=== PATIENT | male | born 2005 | race Two or more races ===

== ENCOUNTER 2025-06-20 12:02 | Emergency (ER) | payer MEDICAID, SELFPAY ==
[2025-06-20 13:21] VITALS: BP 143/86; PULSE 111; RESP 18; TEMP 36.9; O2SAT 96; BMI 42.0
--- NOTE | 2025-06-20 13:37 | XR_ITS ---
Examination: Wrist, left 3 views Technique: Wrist AP, oblique, lateral 3 views Date and time of exam: June 20, 2025, 1347 hours INDICATIONS: Patient fell today with injury of the wrist, wrist pain. FINDINGS: No fracture or dislocation No foreign body IMPRESSION: No fracture or dislocation
--- NOTE | 2025-06-20 13:37 | XR_ITS ---
EXAMINATION: Right knee 2 views TECHNIQUE: AP lateral right knee 2 views Date and time: June, 1353 hours INDICATIONS: Patient fell off a skateboard with laceration to the right knee today. FINDINGS: Large laceration in distribution of the patellar tendon No fracture Small knee effusion IMPRESSION: Consider MRI knee without without contrast follow-up to exclude damage to the patellar tendon
--- NOTE | 2025-06-20 13:38 | EDNOTE_ITS ---
Lower Extremity Injury RME/HPI General Chief Complaint: Extremity Injury, Lower Stated Complaint: R KNEE INJURY FELL OFF SKATEBOARD Time Seen by Provider: 06/20/25 12:21 Arrival date/time: 06/20/25 12:02 19-year-old male patient was brought in by family for evaluation regarding right anterior knee laceration. Patient sustained a fall while doing skateboard, patient sustained 10 cm gaping laceration to the anterior knee, severity moderate. Patient also complained of left wrist tenderness, no swelling or de formity noted. Patient denies any head injury no LOC no neck pain no chest pain no back pain patient is ambulatory. Dizziness vaccinations up-to-date. Incident happened few minutes prior to ER visit. Related Data Previous Rx's ?Medication ?Instructions ?Recorded cephalexin 500 mg capsule 500 mg PO Q8H 7 days #21 cap s 06/20/25 ibuprofen 800 mg tablet 800 mg PO Q8H PRN pain #30 t abs 06/20/25 Allergies Allergy/AdvReac Type Severity Reaction Status Date / Time No Known Allergies Allergy Verified 06/20/25 12:04 Review of Systems Review of Systems Narrative Review of Systems: Review of system reviewed and within normal limits except mentioned in HPI ED Exam Narrative Physical exam: VITAL SIGNS: Reviewed. GENERAL APPEARANCE: Alert and interactive, follows commands, no acute distress, HEAD AND FACE: Non-traumatic. ENT: PERRL, pink conjunctivitis, eyelid no trauma, Mucous membrane moist. NECK: Supple, nontender, no nuchal rigidity. CHEST: No tenderness, no crepitus, no paradoxical movement, no retractions. LUNGS: Clear, well ventilated, symmetric, no rales, no wheezing, no ronchi, no stridor, good breath sounds bilaterally. HEART: Regular rate, regular rhythm, no murmur, no gallops. ABDOMEN: Soft, positive bowel sounds, nondistended, no guarding, nontender, no rebound, no masses, RECTAL: Deferred. GENITAL: Deferred. NEUROLOGICAL: Gross motor function intact sensory function intact, Appropriate for age. MUSCULOSKELETAL: low back nontender, full range of motion. EXTREMITIES: Right anterior knee laceration about 10 cm, gaping, no bone exposure, full range of motion of the knee joints distal neurovascular status intact, left wrist tenderness, no deformity, full range of motion. SKIN: Color pink, dry, no rash, no lacerations, no abrasions, no contusions. LYMPHATICS: Deferred. Course Quality Measures none Orders Category Date Time Status XR knee limited RT 2V Stat Exams 06/20/25 13:37 Completed XR wrist comp LT min 3V Stat Exams 06/20/25 13:37 Completed Ibuprofen Tab [Motrin Tab] Med 06/20/25 13:37 Discontinued 800 mg PO X1 ONE Lidocaine 1% Vial 20 ml [Xylocaine 1% 20 ML] Med 06/20/25 13:37 Discontinued 20 ml INFL X1 ONE ceFAZolin [Ancef] 1 gm Med 06/20/25 13:38 Discontinued Sterile Water 2.5 ml IM X1 Vital Signs Vital signs: Vital Signs Temperature 98.5 F 06/20/25 13:21 Pulse Rate 111 H 06/20/25 13:21 Respiratory Rate 18 06/20/25 13:21 Blood Pressure 143/86 H 06/20/25 13:21 Pulse Oximetry (%) 96 06/20/25 13:21 Oxygen Delivery Method Room Air 06/20/25 13:21 Extremity Injury, Lower MDM Narrative MDM Narrative:: 19-year-old male patient was brought in by family for evaluation regarding right anterior knee laceration. Patient sustained a fall while doing skateboard, patient sustained 10 cm gaping laceration to the anterior knee, severity moderate. Patient also complained of left wrist tenderness, no swelling or deformity noted. Patient denies any head injury no LOC no neck pain no chest pain no back pain patient is ambulatory. Dizziness vaccinations up-to-date. Incident happened few minutes prior to ER visit. Repair and suturing was done by me see procedure notes. X-ray of the knee came back with no foreign body noted, no fracture noted no abnormality noted except for large skin defect X-ray of the wrist came back unremarkable also results discussed with the patient. Patient received cefazolin, Motrin Stable for charged home Patient data External records reviewed:: None Clinical information provided by:: patient Social determinants that could affect healthcare access:: none Patient has the following chronic illnesses:: None How is presenting disease/condition affected by chronic disease/condition?: no chronic disease Evaluation data The following diagnostics were reviewed and interpreted by me:: radiology exam(s) Lab and/or radiology exams considered but not ordered:: none Interpretation Summary: See above Medications / Prescriptions Medications or Prescriptions considered but not ordered:: None Medication administrations:: Medication Administration History Discontinued Medications Cefazolin Sodium 1 gm/ Sterile (Water 2.5 ml) 0 gm IM X1 ONE Stop: 06/20/25 13:39 Last Admin: 06/20/25 14:56 Dose: 1,000 dose Documented By: TIMOTHY Ibuprofen (Ibuprofen Tab 400 Mg Tablet) 800 mg PO X1 ONE Stop: 06/20/25 13:38 Last Admin: 06/20/25 14:55 Dose: 800 mg Documented By: TIMOTHY Lidocaine HCl (Lidocaine Hcl 1% 20 Ml Vial) 20 ml INFL X1 ONE Stop: 06/20/25 13:38 Last Admin: 06/20/25 14:58 Dose: 20 ml Documented By: TIMOTHY Comments: administered by provider Cefazolin, Motrin Consultations Consultation(s) initiated? (list below): No Diagnosis Extremity Injury, Lower Differential Diagnosis: fracture of toe (Anterior knee laceration patellar fracture patellar tendon rupture, wrist pain) Most likely diagnosis given after review of the tests above:: Anterior knee laceration, Wris pain Admission Indicated Admission indicated?: not indicated Admission Request Was there a request for admission?: No Disposition Plan Disposition Plan: Discharge Discharge Attestation Discharge Attestation: The patient was given an opportunity to ask questions and understood the discharge instructions. Discharge instructions specifically effects, indications for sooner follow up or return to the emergency department, and the expected course of current diagnosis. Patient condition: Stable Discharge Plan Plan Patient Disposition: HOME (Self Care) Discharge Disposition comment: Stable Prescriptions/Referrals Prescriptions/Med Rec: New cephalexin 500 mg capsule 500 mg PO Q8H 7 Days Qty: 21 0RF ibuprofen 800 mg tablet 800 mg PO Q8H PRN (Reason: pain) Qty: 30 0RF Referrals: No Primary/Family,Physician [Primary Care Provider] - In 1 week Problem List Clinical Impression: Laceration of knee without complication, Acute wrist pain Patient/Caregiver Discharge Instructions Discharge Activity: activity as tolerated Education Materials: Understanding the Pain Response Additional Instructions: Thank you for the opportunity for serving you today. You are stable for discharged . You are advised to: Follow-up with your PCP in 1 to 2 days Return to ED for worsening of symptoms Increase oral fluids Take medication as prescribed Daily dressing with bacitracin as needed For removal of sutures in 10 days Print Language: Nigerian Stand Alone Forms: Milvia Award Info., Patient Portal Info Letter MAGED/CORN SHELLER Supervising Physician PA/CORN SHELLER Supervising Physician: MD Eldon
[2025-06-20] MEDS: IBUPROFEN TAB 400 MG TABLET 800 MG PO (14:55)
[2025-06-20] MEDS: ceFAZolin 1 GM, Sterile Water 2.5 ML IM (14:56)
[2025-06-20] MEDS: LIDOCAINE HCL 1% 20 ML VIAL INFL (14:58)
== END 2025-06-20 18:24 | disposition home or self-care (01) ==
PROVIDERS: Emergency Provider Nurse Practitioner Family
DX: S81.011A Laceration without foreign body, right knee, initial encounter (principal); M25.532 Pain in left wrist; V00.131A Fall from skateboard, initial encounter; Y93.51 Activity, roller skating (inline) and skateboarding
CPT/HCPCS: 73110; 73560; 96372; 99283; A4216; J0690; J3490; A9270

== ENCOUNTER 2025-06-30 11:52 | Emergency (ER) | payer MEDICAID, SELFPAY ==
[2025-06-30 12:09] VITALS: BP 160/93; PULSE 94; RESP 18; TEMP 36.9; O2SAT 98
--- NOTE | 2025-06-30 12:26 | EDNOTE_ITS ---
ED Wound/Laceration-RME/HPI General Chief Complaint: Wound Recheck / Suture Removal Stated Complaint: REMOVE STITCHES R) KNEE Time Seen by Provider: 06/30/25 12:18 Source: patient Arrival date/time: 06/30/25 11:52 19-year-old male with no known medical history presents to the emergency room with a chief complaint wanting to get the stitches in his right knee removed Mode of arrival: ambulatory Limitations: no limitations Related Data Previous Rx's ?Medication ?Instructions ?Recorded ibuprofen 800 mg tablet 800 mg PO Q8H PRN pain #30 t abs 06/20/25 Allergies Allergy/AdvReac Type Severity Reaction Status Date / Time No Known Allergies Allergy Verified 06/30/25 11:54 Review of Systems Review of Systems Systems Reviewed: All systems reviewed, normal except as documented Constitutional Constitutional: Reports system reviewed and no additional complaints, except as documented, Denies fatigue, Denies fever(s), Denies headache(s) and Denies weakness Eyes Eyes: Reports system reviewed and no additional complaints, except as documented, Denies blurry vision and Denies change in vision ENT Ears, Nose, Mouth, and Throat: Reports system reviewed and no additional complaints, except as documented, Denies otalgia, Denies headache(s), Denies nasal congestion, Denies throat swelling and Denies vertigo Cardiovascular Cardiovascular: Reports system reviewed and no additional complaints, except as documented, Denies chest pain, Denies dyspnea and Denies dyspnea on exertion Respiratory Respiratory: Reports system reviewed and no additional complaints, except as documented, Denies chest congestion, Denies cough, Denies dyspnea, Denies dyspnea on exertion and Denies wheezing Gastrointestinal Gastrointestinal: Reports system reviewed and no additional complaints, except as documented, Denies abdominal pain, Denies cramping, Denies nausea and Denies vomiting Genitourinary Genitourinary: Reports system reviewed and no additional complaints, except as documented, Denies dysuria and Denies hematuria Musculoskeletal Musculoskeletal: Reports system reviewed and no additional complaints, except as documented and Denies back pain Integumentary/Breasts Skin/Breast: Reports system reviewed and no additional complaints, except as documented and Reports wounds Neurologic Neurologic: Reports system reviewed and no additional complaints, except as documented, Denies confusion, Denies headache(s), Denies lack of coordination, Denies vertigo and Denies weakness Psychiatric Psychiatric: Reports system reviewed and no additional complaints, except as documented, Denies anxiety, Denies confusion, Denies depression, Denies paranoia, Denies suicidal ideation and Denies tactile hallucinations Endocrine Endocrine: Reports system reviewed and no additional complaints, except as documented and Denies fatigue Hematologic/Lymphatic Hematologic/Lymphatic: Reports system reviewed and no additional complaints, except as documented and Denies lymphadenopathy Allergic/Immunologic Allergic/Immunologic: Reports system reviewed and no additional complaints, except as documented, Denies throat swelling, Denies urticaria and Denies wheezing ED Exam General Limitations: Present no limitations General appearance: Present alert and in no apparent distress Head Head exam: Present atraumatic Eye Eye exam: Present normal appearance, PERRL and EOMI ENT ENT exam: Present normal exam, normal oropharynx and mucous membranes moist Neck Neck exam: Present normal inspection, full ROM and trachea midline Chest Chest inspection: Present normal inspection and symmetric chest wall rise Respiratory Respiratory exam: Present normal lung sounds bilaterally Cardiovascular Cardiovascular exam: Present regular rate, normal rhythm and normal heart sounds Abdominal Exam Abdominal exam: Present soft and normal bowel sounds Extremities Exam Extremities exam: Present normal inspection and full ROM Expanded Lower Extremity Exam Hip/Pelvis exam: Present normal inspection Upper leg exam: Present normal inspection Back Exam Back exam: Present normal inspection and full ROM Neurological Exam Neurological exam: Present alert, oriented X3 and CN II-XII intact Psychiatric Psychiatric exam: Present normal affect and normal mood Skin Skin exam: Present warm, dry, intact and normal color Course Quality Measures none Orders Category Date Time Status Suture / Staple Removal NOW Care 06/30/25 12:24 Active Vital Signs Vital signs: Vital Signs Temperature 98.4 F 06/30/25 12:09 Pulse Rate 94 06/30/25 12:09 Respiratory Rate 18 06/30/25 12:09 Blood Pressure 160/93 H 06/30/25 12:09 Pulse Oximetry (%) 98 06/30/25 12:09 Oxygen Delivery Method Room Air 06/30/25 12:09 Wound / Laceration MDM Narrative MDM Narrative:: 19-year-old male with no known medical history presents to the emergency room with a chief complaint wanting to get the stitches in his right knee removed Patient is hemodynamically stable and in no apparent distress Physical examination shows 10 stitches to his right knee. All the stitches were removed with no complications. There is no erythema there is no drainage there is no pus there is no signs of any evidence of any infection Patient was discharged and educated to follow-up with primary care provider in the next 24 to 48 hours and return to the emergency room for any evidence of worsening signs or symptoms Patient data External records reviewed:: [facility] previous records Clinical information provided by:: patient Social determinants that could affect healthcare access:: none Patient has the following chronic illnesses:: No chronic illness How is presenting disease/condition affected by chronic disease/condition?: no chronic disease Evaluation data The following diagnostics were reviewed and interpreted by me:: lab results and radiology exam(s) Lab and/or radiology exams considered but not ordered:: Labs and radiology exams considered and ordered Interpretation Summary: N/A Medications / Prescriptions Medications or Prescriptions considered but not ordered:: No medication given Medication administrations:: No medication given Consultations Consultation(s) initiated? (list below): No Diagnosis Wound Differential Diagnosis: laceration, abscess, abrasion and other (Encounter for suture removal) Most likely diagnosis given after review of the tests above:: Encounter for suture removal Admission Indicated Admission indicated?: not indicated Admission Request Was there a request for admission?: No Disposition Plan Disposition Plan: Discharge Discharge Attestation Discharge Attestation: The patient and all family members were given an opportunity to ask questions and understood the discharge instructions. Discharge instructions specifically effects, indications for sooner follow up or return to the emergency department, and the expected course of current diagnosis. Patient condition: Stable Discharge Plan Plan Patient Disposition: HOME (Self Care) Discharge Disposition comment: Stable Prescriptions/Referrals Prescriptions/Med Rec: No Action ibuprofen 800 mg tablet 800 mg PO Q8H PRN (Reason: pain) Qty: 30 0RF Referrals: No Primary/Family,Physician [Primary Care Provider] - In 1 week Problem List Clinical Impression: Encounter for removal of sutures Patient/Caregiver Discharge Instructions Education Materials: ED Stitches/Staple Removal No ... Additional Instructions: Please follow-up with your primary care provider in the next 24 to 48 hours Your sutures were removed with no complication For any evidence of worsening signs or symptoms return to emergency room immediately Print Language: Greek Stand Alone Forms: Milvia Award Info., Work/School Release, Patient Portal Info Letter PA/DUSTIN Supervising Physician PA/DUSTIN Supervising Physician: Dr. Buckner
== END 2025-06-30 12:56 | disposition home or self-care (01) ==
PROVIDERS: Emergency Provider Nurse Practitioner Family
DX: S81.011D Laceration without foreign body, right knee, subsequent encounter (principal); X58.XXXD Exposure to other specified factors, subsequent encounter
CPT/HCPCS: 99281

== ENCOUNTER 2025-07-02 12:23 | Emergency (ER) | payer MEDICAID, SELFPAY ==
[2025-07-02 12:24] VITALS: BMI 42.9
[2025-07-02 12:51] VITALS: BP 157/102; PULSE 92; RESP 20; TEMP 37.2; O2SAT 98; BMI 44.4
--- NOTE | 2025-07-02 12:57 | PD.EDLOWEX ---
Lower Extremity Injury RME/HPI General Chief Complaint: Extremity Injury, Lower Stated Complaint: RIGHT KNEE SUTURE REPAIR Time Seen by Provider: 07/02/25 12:28 Arrival date/time: 07/02/25 12:23 19-year-old male presents to the emergency department today stating he recently had his sutures taken out patient reports wound dehiscence to the right knee patient is here for evaluation. Limitations: no limitations Related Data Previous Rx's ?Medication ?Instructions ?Recorded ibuprofen 800 mg tablet 800 mg PO Q8H PRN pain #30 tabs 06/20/25 Allergies Allergy/AdvReac Type Severity Reaction Status Date / Time No Known Allergies Allergy Verified 07/02/25 12:26 Review of Systems Review of Systems Systems Reviewed: All systems reviewed, normal except as documented Constitutional Constitutional: Reports system reviewed and no additional complaints, except as documented, Denies fever(s) and Denies headache(s) Eyes Eyes: Reports system reviewed and no additional complaints, except as documented and Denies blurry vision ENT Ears, Nose, Mouth, and Throat: Reports system reviewed and no additional complaints, except as documented, Denies headache(s), Denies nasal congestion and Denies nasal discharge Cardiovascular Cardiovascular: Reports system reviewed and no additional complaints, except as documented, Denies chest pain and Denies dyspnea Respiratory Respiratory: Reports system reviewed and no additional complaints, except as documented, Denies chest congestion, Denies cough and Denies dyspnea Gastrointestinal Gastrointestinal: Reports system reviewed and no additional complaints, except as documented and Denies abdominal pain Integumentary/Breasts Skin/Breast: Reports system reviewed and no additional complaints, except as documented, Denies rash and Reports wounds (Wound dehiscence right knee) Neurologic Neurologic: Reports system reviewed and no additional complaints, except as documented, Reports as per HPI and Denies headache(s) Past Medical History Social History SMOKING STATUS: Never smoker ED Exam General Limitations: Present no limitations General appearance: Present alert and in no apparent distress Head Head exam: Present atraumatic Eye Eye exam: Present normal appearance, PERRL and EOMI ENT ENT exam: Present normal exam, normal oropharynx and mucous membranes moist Neck Neck exam: Present normal inspection, full ROM and trachea midline Chest Chest inspection: Present normal inspection and symmetric chest wall rise Respiratory Respiratory exam: Present normal lung sounds bilaterally Cardiovascular Cardiovascular exam: Present regular rate, normal rhythm and normal heart sounds Abdominal Exam Abdominal exam: Present soft and normal bowel sounds Extremities Exam Extremities exam: Present full ROM, tenderness and normal capillary refill; Absent joint swelling Expanded Lower Extremity Exam Leg image:  1. Wound dehiscence right knee Back Exam Back exam: Present normal inspection and full ROM Neurological Exam Neurological exam: Present alert, oriented X3 and CN II-XII intact Psychiatric Psychiatric exam: Present normal affect and normal mood Skin Skin exam: Present warm, dry, intact and normal color Course Quality Measures none Vital Signs Vital signs: Vital Signs Temperature 99.0 F 07/02/25 12:51 Pulse Rate 92 07/02/25 12:51 Respiratory Rate 20 07/02/25 12:51 Blood Pressure 157/102 H 07/02/25 12:51 Pulse Oximetry (%) 98 07/02/25 12:51 Oxygen Delivery Method Room Air 07/02/25 12:51 O2 saturation 98% room air wnl Extremity Injury, Lower MDM Narrative MDM Narrative:: 19-year-old male presents to the emergency department today stating he recently had his sutures taken out patient reports wound dehiscence to the right knee patient is here for evaluation. On exam patient well-appearing does not appear ill or toxic no distress On exam patient has small dehiscence of the right knee no active bleeding no evidence of infection Patient discharged home in no distress to follow-up with primary care doctor in the next 24 to 48 hours and for any worsening symptoms to return to the ER immediately Patient data External records reviewed:: [facility] previous records Clinical information provided by:: patient Social determinants that could affect healthcare access:: none Patient has the following chronic illnesses:: None How is presenting disease/condition affected by chronic disease/condition?: no chronic disease Evaluation data The following diagnostics were reviewed and interpreted by me:: other (specify) Lab and/or radiology exams considered but not ordered:: Not indicated Interpretation Summary: N/A Medications / Prescriptions Medications or Prescriptions considered but not ordered:: Given Medication administrations:: Given Consultations Consultation(s) initiated? (list below): No Diagnosis Extremity Injury, Lower Differential Diagnosis: other (Laceration, abrasion, wound dehiscence right knee) Most likely diagnosis given after review of the tests above:: Wound dehiscence Admission Indicated Admission indicated?: not indicated Admission Request Was there a request for admission?: No Disposition Plan Disposition Plan: Discharge Discharge Attestation Discharge Attestation: The patient and all family members were given an opportunity to ask questions and understood the discharge instructions. Discharge instructions specifically effects, indications for sooner follow up or return to the emergency department, and the expected course of current diagnosis. Patient condition: Stable Discharge Plan Plan Patient Disposition: HOME (Self Care) Discharge Disposition comment: Stable Prescriptions/Referrals Prescriptions/Med Rec: No Action ibuprofen 800 mg tablet 800 mg PO Q8H PRN (Reason: pain) Qty: 30 0RF Problem List Clinical Impression: Dehiscence of laceration wound Patient/Caregiver Discharge Instructions Additional Instructions: Please follow up with your primary care doctor in the next 24-48hrs for any worsening symptoms return here immediately Print Language: Mongolian Stand Alone Forms: Milvia Award Info., Patient Portal Info Letter MAGED/DUSTIN Supervising Physician MAGED/DUSTIN Supervising Physician: dr adrian
== END 2025-07-02 13:15 | disposition home or self-care (01) ==
LOC: SERX 13:03
PROVIDERS: Emergency Provider Emergency Medicine
DX: T81.33XA Disruption of traumatic injury wound repair, initial encounter (principal); Y84.8 Other medical procedures as the cause of abnormal reaction of the patient, or of later complication, without mention of misadventure at the time of the procedure
CPT/HCPCS: 99281